=== PATIENT | male | born 1975 | race Caucasian/White ===

== ENCOUNTER 2021-09-09 17:28 | Inpatient (IN) | payer SELFPAY ==
[~2021-09-09] VITALS: Ht 182.9 cm; Wt 77.0 kg
--- NOTE | 2021-09-09 17:28 | NUR ---
PATIENT TO ROOM VIA EMS STATUS. PATIENT UNRESPOSIVE AND HAS OCCASIONAL MOVEMENTS TO RIGHT ARM. NASAL AIRWAY PLACED AND 02 BY NONREBREATHER. LACERATION TO RIGHT EYEBROWN, LEFT EYE AND NASAL SWELLING NOTED. PATIENT WAS GIVEN A TOTAL OF 100 OF KETAMINE BY EMS.
[2021-09-09 17:58] LABS: HEMATOCRIT 45.9 % (39.0-50.0); HEMOGLOBIN 15.3 g/dl (14.0-18.0); IMMATURE GRANULOCYTES 0.5 % (0.0-5.0); MEAN CELL VOLUME 101.5 fL CALC (80.0-100.0); MEAN CORPUSCULAR HGB 33.8 pG CALC (26.0-32.0); MEAN CORPUSCULAR HGB CONC 33.3 g/dL CAL (32.0-36.0); NEUT# 18.62 thou/uL (1.82-7.42); RED BLOOD COUNT 4.52 mill/uL (4.70-6.10); RED CELL DISTRI WIDTH 11.7 % (11.5-15.5)
[2021-09-09 17:59] LABS: URINE BILIRUBIN - DIPSTICK NEGATIVE (NEGATIVE); URINE BLOOD DIPSTICK MODERATE (NEGATIVE); URINE COLOR YELLOW; URINE GLUCOSE - DIPSTICK NEGATIVE (NEGATIVE); URINE KETONE NEGATIVE (NEGATIVE); URINE LEUK ESTERASE NEGATIVE (NEGATIVE); URINE PROTEIN - DIPSTICK NEGATIVE (NEG-TRACE); URINE UROBILINOGEN - DIPSTICK 0.2 E.U./dL (0.2)
[2021-09-09 18:02] LABS: URINE NITRITE - DIPSTICK NEGATIVE (Negative)
[2021-09-09 18:27] LABS: ACT PARTIAL THROMBO TIME 20.5 SECONDS (20.0-32.5); PROTHROMBIN TIME 10.8 SECONDS (9.0-12.5)
--- NOTE | 2021-09-09 18:50 | NUR ---
PT RESTING SUPINE WITH HOB ELEVATED, NASAL TRUMPET IN PLACE TO RT NARE. O2 @3LPM VIA N/C.PT STILL SEDATE. SITER AT BEDSIDE. VSS. NEURO BILAT PUPILS 2MM ADN SLUGGISH.
[2021-09-09 18:51] LABS: ALBUMIN 4.9 g/dL (3.2-5.0); ALKALINE PHOSPHATASE 84 u/l (38-126); AMYLASE 99 u/l (30-110); ANION GAP 14 (6-22 (CALC)); BILIRUBIN, TOTAL 0.9 mg/dL (0.0-1.4); BUN 12 mg/dL (9-20); BUN/CREATININE RATIO 13 (12-20 (CALC)); CARBON DIOXIDE 23 mmol/l (22-30); CHLORIDE 111 mmol/l (95-108); CPK 805 u/l (52-200); CREATININE 0.9 mg/dL (0.7-1.3); ETHYL ALCOHOL 0 mg/dl (0-30); GFR > 60 ML/MIN (>=60 (CALC)); GFR FOR AFR.AMER. > 60 ML/MIN (>=60 (CALC)); LIPASE 207 u/l (23-300); POTASSIUM 4.2 mmol/l (3.5-5.1); SGOT/AST 77 u/l (17-59); SODIUM 144 mmol/l (137-146); TOTAL PROTEIN 8.1 g/dL (6.3-8.2)
--- NOTE | 2021-09-09 19:20 | NUR ---
PT AWAKE ABLE TO REPEAT NAME AND REPEATEDLY, REQUIRES FREQUENT REMINDERS TO LAY BACK AND RELAX, PT COOPERATIVE JUST NEEDS FREQUENT REMINDERS.
--- NOTE | 2021-09-09 20:10 | NUR ---
PT RESTING QUIETLY AT THIS TIME, CALL FAITH WITHIN REACH, SITTER AT BEDSIDE
--- NOTE | 2021-09-09 20:24 | NUR ---
MOM AT BEDSIDE
[2021-09-09 20:40] VITALS: BP 169/102
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
[2021-09-09 21:40] VITALS: BP 170/103
[2021-09-09 21:55] VITALS: BP 162/98
--- NOTE | 2021-09-09 22:00 | NUR ---
MOM UP TO VISIT PT AND PT REMAINS ASLEEP DURING VISIT, PER MOM PT HAS NEVER , NO CHILDREN LIVES WITH HER IN [place] AND HAS A SERIOUS ETOH PROBLEM / HISTORY.
[2021-09-09 23:00] VITALS: BP 164/96
--- NOTE | 2021-09-09 23:32 | NUR ---
PT LINEN CHANGE PERFORMED, PT REQUIRES FREQUENT REMINDERS TO FOLLOW COMMANDS, APOLOGETIC BUT CONTINUES TO BE FORGETFUL, COMPLETE LINEN CHANGE PERFORMED, MEDICATED FOR ANXIETY AND TREMORS ORDERED, IVF CONTINUE, WILL CONTINUE TO MONITOR.
[2021-09-10] VITALS (21 sets, daily range): BP systolic 135–160; BP diastolic 85–108
--- NOTE | 2021-09-10 00:10 | NUR ---
PT SLEEPING NO S/S OF DISTRESS NOTED, SITTER REMAINS AT BEDSIDE COMFORT MEASURES PROVIDED, WILL CONTINUE TO MONITOR.
--- NOTE | 2021-09-10 02:15 | NUR ---
PT RESTING NO S/S OF DISTRESS, PT ACCIDENTALLY REMOVED NASAL TRUMPET NOT REPLACED AT THIS TIME, WILL CONTINUE TO MONITOR
--- NOTE | 2021-09-10 04:00 | NUR ---
PT AWAKE AND TALKING WITH SITTER, NO NEW COMPLAINTS VOICED,
--- NOTE | 2021-09-10 05:42 | NUR ---
PT RESTING WITH EYES CLOSED, CALL FAITH WITHIN REACH
--- NOTE | 2021-09-10 08:43 | NUR ---
PT SEEN AWAKE, ALERT, ORIENTED X 3. LUNGS CLEAR, RA. PT DENIES PAIN. PT SEEN WITH FACIAL BRUISING, DESCRIBES HITTING FACE ON TOILET AT HOME HE PASSED OUT GETTING UP FROM TOILET, 4-5 TIMES. PT WITH SHORT TERM MEMORY DIFFICULTY, TRIES TO PIECE TOGETHER YESTERDAY'S EVENTS. SLIGHT OOZING FROM LEFT FACIAL ABRASION, DABS WITH KLEENEX. PEDAL EDEMA 2+ BILATERALLY.
[2021-09-10 10:54] LABS: HEMATOCRIT 43.7 % (39.0-50.0); HEMOGLOBIN 14.1 g/dl (14.0-18.0); IMMATURE GRANULOCYTES 0.2 % (0.0-5.0); MEAN CELL VOLUME 102.8 fL CALC (80.0-100.0); MEAN CORPUSCULAR HGB 33.2 pG CALC (26.0-32.0); MEAN CORPUSCULAR HGB CONC 32.3 g/dL CAL (32.0-36.0); NEUT# 9.6 thou/uL (1.82-7.42); RED BLOOD COUNT 4.25 mill/uL (4.70-6.10); RED CELL DISTRI WIDTH 11.7 % (11.5-15.5)
[2021-09-10 11:50] LABS: ALBUMIN 4.1 g/dL (3.2-5.0); ALKALINE PHOSPHATASE 66 u/l (38-126); BUN 7 mg/dL (9-20); BUN/CREATININE RATIO 10 (12-20 (CALC)); CHLORIDE 104 mmol/l (95-108); CREATININE 0.7 mg/dL (0.7-1.3); GFR > 60 ML/MIN (>=60 (CALC)); GFR FOR AFR.AMER. > 60 ML/MIN (>=60 (CALC)); POTASSIUM 3.9 mmol/l (3.5-5.1); SGOT/AST 82 u/l (17-59); TOTAL PROTEIN 6.8 g/dL (6.3-8.2)
[2021-09-10 11:57] LABS: ANION GAP 8 (6-22 (CALC)); BILIRUBIN, TOTAL 1.3 mg/dL (0.0-1.4); CARBON DIOXIDE 28 mmol/l (22-30); SODIUM 136 mmol/l (137-146)
--- NOTE | 2021-09-10 12:50 | NUR ---
PT SEEN BY DR HAZEL THIS MORNING. PT CONSISTENT WITH STORY REGARDING HIS INJURIES. XRAYS ORDERED AND TAKEN, RESULTS PENDING. MOTHER HAS VISITED WITH PT THIS MORNNG.
--- NOTE | 2021-09-10 16:13 | NUR ---
PT CONTINUES AT REST IN THE BED, NO DISTRESS, NO COMPLAINTS. BESS CATHETER HAS BEEN REMOVED, WAITING FOR PT TO VOID SINCE REMOVAL.
--- NOTE | 2021-09-10 17:59 | NUR ---
PT TO BSC, WAS ABLE TO HAVE BM AND VOID. ESPANA BOOT BROUGHT FROM ER PER LEFT ANKLE FRACTURE. PT UPDATED ON LEFT FIBULAR FX, DR HAZEL MADE AWARE PER TEXT.
--- NOTE | 2021-09-10 20:00 | NUR ---
RESTING IN BED WATCHING TV. NO COMPLAINTS VOICED. VSS. RESP NON-LABORED. LUNGS CLEAR. PATIENT IS CALM AND COOPERATIVE. MONITOR SR. DISCUSSED PLAN OF CARE. DENIES NEEDS AT THIS TIME. CALL FAITH IN REACH.
--- NOTE | 2021-09-10 22:00 | NUR ---
WATCHING TV. NO COMPLAINTS. VSS.
[2021-09-11] VITALS (16 sets, daily range): BP systolic 108–179; BP diastolic 82–101
--- NOTE | 2021-09-11 00:05 | NUR ---
RESTING WITH EYES CLSOED. RESP EVEN AND UNLABORED. SR ON MONITOR.
--- NOTE | 2021-09-11 02:00 | NUR ---
SLEEPING, RESP NON-LABORED. VSS.
--- NOTE | 2021-09-11 04:00 | NUR ---
NO CHANGES TO REPORT. VSS. RESP NON-LABORED.
[2021-09-11 04:55] LABS: HEMATOCRIT 43.6 % (39.0-50.0); HEMOGLOBIN 14.2 g/dl (14.0-18.0); MEAN CELL VOLUME 103.6 fL CALC (80.0-100.0); MEAN CORPUSCULAR HGB 33.7 pG CALC (26.0-32.0); MEAN CORPUSCULAR HGB CONC 32.6 g/dL CAL (32.0-36.0); RED BLOOD COUNT 4.21 mill/uL (4.70-6.10); RED CELL DISTRI WIDTH 11.7 % (11.5-15.5)
[2021-09-11 05:05] LABS: ANION GAP 10 (6-22 (CALC)); BUN 7 mg/dL (9-20); BUN/CREATININE RATIO 11 (12-20 (CALC)); CARBON DIOXIDE 26 mmol/l (22-30); CHLORIDE 103 mmol/l (95-108); CREATININE 0.6 mg/dL (0.7-1.3); GFR > 60 ML/MIN (>=60 (CALC)); GFR FOR AFR.AMER. > 60 ML/MIN (>=60 (CALC)); POTASSIUM 4.2 mmol/l (3.5-5.1); SODIUM 135 mmol/l (137-146)
--- NOTE | 2021-09-11 06:21 | NUR ---
SLETP WELL. PATIENT HAS BEEN CALM AND COOPERATVIE THROUGHT THE SHIFT. NO C/O VOICED. VSS.
--- NOTE | 2021-09-11 07:00 | NUR ---
ASSUMED CARE OF PT FROM PERLITA SCHNEIDER. NO S/S OF DISTRESS NOTED.
--- NOTE | 2021-09-11 09:45 | NUR ---
ROUNDING AT BEDSIDE
--- NOTE | 2021-09-11 12:30 | NUR ---
PT RESTING IN BED, DENIES AY NEEDS, NO S/S OF DISTRESS NOTED
--- NOTE | 2021-09-11 15:39 | NUR ---
PT TRANSFERRED TO [facility] 269 VIA WHEELCHAIR AFTER REPORT CALLED TO PERLITA GOMEZ
--- NOTE | 2021-09-11 16:31 | NUR ---
REPORT RECEIVED FROM PAPI IN ICU, PT TRANSPORTED TO UNIT VIA W/C @ 1540 AND SETTLED IN BED. ALERT AND ORIENTED X 3, NO C/O DISCOMFORT AT THIS TIME BUT REQUESTING WALKER STATING HE WANTS TO AMBULATE TO BR INSTEAD OF USING BSC, DENIES PAIN TO FX LEFT FOOT AT THIS TIME. SUPERVISED AMBULATION TO BR WITH ASSIST OF WALKER, INFORMED OF FALL PRECAUTION/PREVENTION AND STATED UNDERSTANDING, ORIENTED TO ROOM AND CALL FAITH, SETTLED IN ROOM, WILL CONTINUE TO MONITOR AND ADDRESS NEEDS.
--- NOTE | 2021-09-11 19:00 | NUR ---
RECEIVED REPORT FROM NURSE LAWLER, PATIENT RESTING IN BED, ASSUMED PATIENT CARE, NOT IN DISTRESS CALL LIGHT AT REACH.
--- NOTE | 2021-09-11 20:00 | NUR ---
PATIENT ALERT ORIENTED X 3 ABLE TO MAKE NEEDS KNONW, BREATHING UNLABORED, FACIAL BRUISING NOTED, ABRASIONS NOTED ON KNEES, SWELLING ON BOTH FEET,LEFT FOOT ELEVATED, WITH PILLOW,GEN BODY PAIN PS /10, PATIENT STATED THAT IF HE WON'T MOVE FEET NO PAIN, ACTIVE BOWEL SOUNDS, LBM 1/2, CIWA SORE 0, CALL LIGHT AT REACH.
--- NOTE | 2021-09-11 23:40 | NUR ---
PATIENT RESTING IN BED, EYES CLOSED, BREATHING UNLABORED, NO DISCOMFORTS AT THIS TIME.
[2021-09-12] VITALS: BP 132/93
--- NOTE | 2021-09-12 04:07 | NUR ---
PATIENT RESTING WITH EYES CLOSED, DENIES PAIN OR DISCOMFORTS AT THIS TIME, BREATHING UNLABORED CALL LIGHT AT REACH.
[2021-09-12 04:08] VITALS: BP 129/84
[2021-09-12 07:49] VITALS: BP 142/91
--- NOTE | 2021-09-12 08:00 | NUR ---
SHIFT CHANGE REPORT, PT AWAKE ALERT AND ORIENTED RESTING IN BED, DENIES PAIN, FACIAL AND LEFT FOOT EDEMA AND BRUISING STILL PROMINENT, L. LEG ELEVATED ON PILLOWS, CALL FAITH IN REACH AND BED LOCKED IN LOWEST POSITIOIN.
--- NOTE | 2021-09-12 09:32 | NUR ---
Patient is screened for PT intervention and no needs are identified at this time
--- NOTE | 2021-09-12 12:58 | NUR ---
SITTING UP IN BED, ATE MEAL, MD ROUNDED AND DISCUSSED PLAN OF CARE, MOTHER AT BEDSIDE, ALL NEEDS ADDRESSED.
--- NOTE | 2021-09-12 15:24 | NUR ---
TRAMSPORTED OFF UNT VIA W/C TO CT AND RETURNED TO UNIT, DENIES PAIN, BP & HR ELEVATED TO 172/108 & 109 AT THIS TIME, MERGERS AND ACQUISITIONS ATTORNEY NOTIFIED AND STATED HE WILL ADDRESS CONDITION.
[2021-09-12 15:25] VITALS: BP 172/108
--- NOTE | 2021-09-12 16:00 | NUR ---
DR BEN BAGLEY, PLACED SPLIT ON LEFT FOOT,ADVISED PT HE NEEDS SURGICAL INTERVENTION BUT NEEDS SWELLING TO RECEDE FIRST AND SURGERY MAY NOT BE UNTIL LATE THIS WEEK OR EARLY NEXT WEEK, PT UNDERSTANDS.
[2021-09-12 19:39] VITALS: BP 150/94
--- NOTE | 2021-09-13 01:38 | NUR ---
PHYSICAL ASSESMENT COMPLETE. PT CURRENTLY DENIES PAIN OR DISCOMFORT. SCHEDULED MEDICATIONS AND PRN MEDICATION ADMINISTERED, SEE E-MAR. PT LEFT FOOT IS PINK WITH GOOD COLOR. TOES RESPOND TO STIMULI. PT DENIES ANY NEEDS AT THIS TIME. PLAN OF CARE REVIEWED, PT DENIES QUESTIONS, VERBALIZES UNDERSTANDING. ITEMS WITHIN REACH, BED LOCKED IN LOW POSITION W/ BEDRAILS UP X2. CALL FAITH WITHIN REACH, AGREES TO CALL PRN.
[2021-09-13 04:00] VITALS: BP 139/94
--- NOTE | 2021-09-13 06:24 | NUR ---
PT LAYING IN BED WITH EYES CLOSED, APPEARS TO BE SLEEPING, APPEARS COMFORTABLE AND IN NO DISTRESS. RESPIRATIONS REGULAR AND UNLABORED. ITEMS REMAIN WITHIN REACH, CALL FAITH REMAINS WITHIN REACH. BED REMAINS LOCKED AND IN LOW POSITION WITH BEDRAILS UP X2. WILL CONTINUE TO MONITOR.
[2021-09-13 07:56] VITALS: BP 141/88
--- NOTE | 2021-09-13 09:00 | NUR ---
PT AWAKE, ALERT, ORIENTED X 3. LUNGS CLEAR, RA. PT WITH LEFT LEG ON PILLOWS PER SWELLING. NO REPORT OF PAIN. PT AWARE OF PLAN OF CARE FOR SURGERY AFTER SWELLING SUBSIDES.
[2021-09-13 11:31] VITALS: BP 144/90
--- NOTE | 2021-09-13 13:57 | NUR ---
PT REMAINS AT REST IN THE BED WITHOUT CHANGE IN STATUS.
[2021-09-13 15:05] VITALS: BP 139/89
--- NOTE | 2021-09-13 17:02 | NUR ---
PT STATES THAT HE IS DOING WELL, NO PAIN OR DISCOMFORT.
[2021-09-13 18:30] VITALS: BP 152/98
--- NOTE | 2021-09-13 20:00 | NUR ---
PHYSICAL ASSESMENT COMPLETE. PT C/O OF PAIN AND DISCOMFORT. SCHEDULED MEDICATIONS AND PRN MEDICATION ADMINISTERED, SEE E-MAR. LEFT FOOT ELEVATED ON A PILLOW. PT DENIES ANY NEEDS AT THIS TIME. PLAN OF CARE REVIEWED, PT DENIES QUESTIONS, VERBALIZES UNDERSTANDING. ITEMS WITHIN REACH, BED LOCKED IN LOW POSITION W/ BEDRAILS UP X2. CALL FAITH WITHIN REACH, AGREES TO CALL PRN.
[2021-09-14] VITALS: BP 145/85
[2021-09-14 03:45] VITALS: BP 119/79
--- NOTE | 2021-09-14 04:00 | NUR ---
PT RESTING IN BED, NO SIGNS OF DISTRESS NOTED, RESP EVEN AND UNLABORED. PT VOICES NO NEEDS OR COMPLAINTS AT THIS TIME. CALL LIGHT IN REACH, CONTINUE TO MONITOR.
[2021-09-14 08:16] VITALS: BP 126/80
--- NOTE | 2021-09-14 08:19 | NUR ---
SHIFT CHANGE REPORT, PT AWAKE ALERT AND ORIENTED SITTING UP IN BED, PLEASANTLY CONVERSANT, STATES LEFT FOOT FEELS MUCH BETTER AND ON ASSESSMENT EDEMA IS RECEEDING, CAST IS IN PLACE AND PT ABLE TO WIGGLE TOES AHICH AR WARM WITH BRISK BLOOD RETURN, FACIAL EDEMA ALSO IMPROVING BUT DARK ORBITAL BRUISING STILL PROMINENT. CALL FAITH IN REACH AND BED LOCKED IN LOWEST POSITION.
--- NOTE | 2021-09-14 12:00 | NUR ---
NO NEW COMPLAINS, RELAXING IN BED, NEW ORDERS REVIEWED WITH PT WHO STATED UNDERSTANDING, ALL NEEDS MET/ADDRESSED, CALL FAITH IN REACH.
[2021-09-14 15:39] VITALS: BP 145/91
[2021-09-14 19:00] VITALS: BP 142/84
--- NOTE | 2021-09-14 20:00 | NUR ---
PHYSICAL ASSESMENT COMPLETE. PT CURRENTLY DENIES PAIN OR DISCOMFORT. SCHEDULED MEDICATIONS AND PRN MEDICATION ADMINISTERED, SEE E-MAR. PT DENIES ANY NEEDS AT THIS TIME. PLAN OF CARE REVIEWED, PT DENIES QUESTIONS, VERBALIZES UNDERSTANDING. ITEMS WITHIN REACH, BED LOCKED IN LOW POSITION W/ BEDRAILS UP X2. CALL FAITH WITHIN REACH, AGREES TO CALL PRN.
[2021-09-15 04:00] VITALS: BP 119/89
[2021-09-15 05:51] LABS: HEMATOCRIT 41.8 % (39.0-50.0); MEAN CELL VOLUME 100.5 fL CALC (80.0-100.0); MEAN CORPUSCULAR HGB 33.7 pG CALC (26.0-32.0); MEAN CORPUSCULAR HGB CONC 33.5 g/dL CAL (32.0-36.0); RED BLOOD COUNT 4.16 mill/uL (4.70-6.10); RED CELL DISTRI WIDTH 11.7 % (11.5-15.5)
[2021-09-15 06:04] LABS: ANION GAP 9 (6-22 (CALC)); BUN 12 mg/dL (9-20); BUN/CREATININE RATIO 13 (12-20 (CALC)); CARBON DIOXIDE 27 mmol/l (22-30); CHLORIDE 104 mmol/l (95-108); CREATININE 0.9 mg/dL (0.7-1.3); GFR > 60 ML/MIN (>=60 (CALC)); GFR FOR AFR.AMER. > 60 ML/MIN (>=60 (CALC)); MAGNESIUM 2.2 mg/dL (1.6-2.3); POTASSIUM 4.4 mmol/l (3.5-5.1); SODIUM 136 mmol/l (137-146)
[2021-09-15 07:15] VITALS: BP 125/84
--- NOTE | 2021-09-15 07:15 | NUR ---
PATIENT RESTING IN BED AT THIS TIME. LEFT FOOT IN SPLINT AND VIDHYA WRAPPED SWELLING 1+ AT THIS TIME. PATIENT DENIES ANY PAIN CURRENTLY SIDERAILS ARE UP X X 2 STATED HE HAS HAD 2 BM THIS MORNING AND ARE NORMAL IN COLOR. DR. OSULLIVAN IN TO SEE PATIENT AND STATED HE WILL TAKE HIM TO SURGERY ON SUNDAY TO REPAIR FRACTURE. CWIA SCALE IS A 0 AT THIS TIME. SPECIAL SERVICES AGENT DONE SEE INTERVENTIONS.
--- NOTE | 2021-09-15 10:59 | NUR ---
SURGERY NURSE PERLITA ESCALONA CALLED AND STATED LONG PATIENT ISN'T EXHIBITING ANY COVID SYMPTOMS A NEW COVID TEST IS NOT REQUIRED PRIOR TO SURGERY.
--- NOTE | 2021-09-15 11:34 | NUR ---
PATIENT SITTING UP IN CHAIR AT THIS TIME DENEIS ANY NEEDS CALL LIGHT AND PERSONAL ITEMS WITHIN REACH. LEFT FOOT ELEVATED AT THIS TIME. WILL CONTINUE TO MONITOR.
--- NOTE | 2021-09-15 14:23 | NUR ---
PATIENT STATES HIS PAIN ON HIS FOOT IS ABOUT A "1" AND THAT THE MOTRIN DOES HELP WITH THIS THROBBING. PATIENT ADVISED THAT MOTRIN IN SCHEDULE AND HE WILL BE GETTING THE MEDICATION ORDERED.
[2021-09-15 15:28] VITALS: BP 132/74
--- NOTE | 2021-09-15 16:02 | NUR ---
PATIENT SITTING UP IN CHAIR WATCHING TV AT THIS TIME. MACHELLE STATES HE HAS NO PAIN AT THIS TIME AND LEFT FOOT IS ELEVATED. LEFT FOOT HAS NOTIABLE SWELLING 1+ AND IS SPLINTED AND VIDHYA WRAPPED AT THIS TIME. CALL LIGHT WITHIN REACH AND PERSONAL ITEMS WELL. WILL CONTINUE TO MONITOR.
[2021-09-15 19:12] VITALS: BP 133/71
--- NOTE | 2021-09-15 19:17 | NUR ---
PT SITTING IN CHAIR AT BEDSIDE, NO SIGNS OF DISTRESS NOTED, RESP EVEN AND UNLABORED. PT ALERT AND ORIENTED X4, DISCUSSED POC, DENIES ANY PAIN AT THIS TIME ONLY REQUEST IS GATORADE. IV TO RW SL FLUSHED WELL WALKER AT BEDSIDE, LLE IN SPLINT AWAITING SURGERY ON SUNDAY. DRESSING CDI, SKIN COOL, CAPILLARY REFILL SLUGGISH, PEDAL PULSE UNABLE TO ASSESS DUE TO SPLINT. ASSESSMENT COMPLETED, CALL LIGHT IN REACH,CONTINUE TO MONITOR.
--- NOTE | 2021-09-15 21:46 | NUR ---
PT RESTING IN BED, MEDICATED PER NOV PT STATES THROBBING TO HIS HEAD 10/20. CALL LIGHT IN REACH,CONTINUE TO MONITOR.
[2021-09-16] VITALS: BP 127/68
--- NOTE | 2021-09-16 01:09 | NUR ---
PT RESTING IN BED WITH EYES CLOSED, NO SIGNS OF DISTRESS NOTED, RESP EVEN AND UNLABORED. CALL LIGHT IN REACH,CONTINUE TO MONITOR.
[2021-09-16 03:44] VITALS: BP 124/76
--- NOTE | 2021-09-16 05:25 | NUR ---
PT MEDICATED PER MAR, NO SIGNS OF DISTRESS NOTED, RESP EVEN AND UNLABORED. CALL LIGHT IN REACH,CONTINUE TO MONITOR.
[2021-09-16 07:15] VITALS: BP 128/76
--- NOTE | 2021-09-16 07:50 | NUR ---
PATIENT RESTING IN BED AT THIS TIME DENEIS ANY PAIN. LEFT FOOT REMAINS IN SPLINT AND IS 1+ IN SWEELING PATIENT SIDERAILS ARE UP X 2 FACIAL CONTUSIONS ARE IN HEALING STAGES PILOT BOAT CAPTAIN DONE SEE INTERVENTIONS.
--- NOTE | 2021-09-16 11:17 | NUR ---
PATIENT SITTING UP IN CHAIR AT THIS TIME DEINES ANY NEEDS CURRENTLY. LEFT FOOT ELEVATED AT THIS TIME. CALL LIGHT AND PERSONAL BELONGINGS WIARTEMIOIN REACH.
--- NOTE | 2021-09-16 16:15 | NUR ---
PATIENT RESTING IN BED AT THIS TIME. DENIES ANY PAIN AND OR NEEDS CALL LIGHT WITHIN REACH SIDERAILS ARE UP X2.
[2021-09-16 16:39] VITALS: BP 131/79
[2021-09-16 19:01] VITALS: BP 126/76
--- NOTE | 2021-09-16 19:44 | NUR ---
PT RESTING IN BED WATCHING TV, NO SIGNS OF DISTRESS NOTED, RESP EVEN AND UNLABORED. PT ALERT AND ORIENTED X4, DISCUSSED POC, LLE ELEVATED SPLINT DRESSING CDI, UNALBE TO ASSESS PEDAL PULSE DUE TO DRESSING. NOTED EDEMA, TOES WARM, CAPILLARY REFILL SLUGGISH BUT PRESENT. PT ABLE TO WIGGLE TOES. NO COMPLAINTS OF PAIN AT THIS TIME. ASSESSMENT COMPLETED, CALL LIGHT IN REACH,CONTINUE TO MONITOR.
--- NOTE | 2021-09-16 21:41 | NUR ---
PT RESTING IN BED WATCHING TV, MEDICATED PER NOV, NO C/O PAIN. CALL LIGHT IN REACH,CONTINUE TO MONITOR.
--- NOTE | 2021-09-17 | NUR ---
PT RESTING IN BED, NO SIGNS OF DISTRESS NOTED, RESP EVEN AND UNLABORED. VOICES NO NEEDS OR COMPLAINTS, CALL LIGHT IN REACH,CONTINUE TO MONITOR.
[2021-09-17 04:00] VITALS: BP 98/62
--- NOTE | 2021-09-17 04:00 | NUR ---
PT RESTING IN BED, NO SIGNS OF DISTRESS NOTED, RESP EVEN AND UNLABORED. DISCUSSED NEW IV ACCESS, ATTEMPTED NEW IV, UNSUCCESSFUL PT STATES HE WOULD PREFER NOT TO CHANGE HIS IV SITE SINCE HIS IS "WORKING" IV SITE FLUSHED, PT TOLERATED WELL. CALL LIGHT IN REACH,CONTINUE TO MONITOR.
[2021-09-17 07:06] VITALS: BP 109/62
--- NOTE | 2021-09-17 07:12 | NUR ---
PATIENT IS RESTING IN BED. ASSESSMENT DONE. PATIENT IS ALERT AND ORIENT X3. PATIENT DENIES PAIN AT THIS TIME. LEFT LEG SPLINT IN PLACE. PATIENT STATED HE HAD A BM TODAY. RESPS EVEN AND UNLABORED. PATIENT DENIES NEEDS AT THIS TIME. SAFETY PRECAUTIONS REINFORCED AND CALL LIGHT IN REACH.
--- NOTE | 2021-09-17 11:46 | NUR ---
PATIENT STATED HE DONE WITH LUNCH NO DISTRESS NOTED. PATIENT IS WATCHING TV. PATIENT DENIES NEEDS. CALL LIGHT IN REACH.
[2021-09-17 14:56] VITALS: BP 129/74
--- NOTE | 2021-09-17 15:00 | NUR ---
PATIENT SITTING IN THE RECLINER AND DENIES NEEDS AT THIS TIME. LEFT LEG SPLINT IN PLACE. CALL LIGHT IN REACH.
--- NOTE | 2021-09-17 19:30 | NUR ---
RECEIVED REPORT FROM PERLITA BEAR. ASSUMED CARE OF PATIENT.
[2021-09-17 19:37] VITALS: BP 119/84
--- NOTE | 2021-09-18 | NUR ---
PATIENT RESTING IN BED WITH EYES CLOSED, NO S/SX OF DISTRESS OR DISCOMFORT NOTED AT THIS TIME. CALL LIGHT WITHIN REACH, BED WHEELS LOCKED WITH SIDE RAILS UP X 2, WILL CONTINUE TO MONITOR.
[2021-09-18 04:10] VITALS: BP 101/67
--- NOTE | 2021-09-18 07:00 | NUR ---
SHIFT CHANGE REPORT, PT AWAKE ALERT AND ORIENTED SITTING UP IN BED, DENIES DISCOMFORT, PLEASANT DISPOSITION, CAST IN PLACE TO LEFT LOWER LEG, CALL FAITH IN REACH AND BED LOCKED IN LOWEST POSITION.
[2021-09-18 07:37] VITALS: BP 123/77
--- NOTE | 2021-09-18 12:19 | NUR ---
SITTING UP IN RECLINER HAVING MEAL, ALL NEEDS ADDRESSED.
[2021-09-18 14:52] VITALS: BP 122/68
--- NOTE | 2021-09-18 16:00 | NUR ---
RELAXING IN BED, NO NEW COMPLAINS, ALL NEEDS ADDRESSED
[2021-09-18 19:00] VITALS: BP 145/85
--- NOTE | 2021-09-18 20:00 | NUR ---
PHYSICAL ASSESMENT COMPLETE. PT CURRENTLY HAS MILD PAIN OR DISCOMFORT. SCHEDULED MEDICATIONS AND PRN MEDICATION ADMINISTERED, SEE E-MAR. PT WILL BE PLACED NPO AT MIDNIGHT FOR ANTICIPATED SURGERY IN THE AM. PT DENIES ANY NEEDS AT THIS TIME. PLAN OF CARE REVIEWED, PT DENIES QUESTIONS, VERBALIZES UNDERSTANDING. ITEMS WITHIN REACH, BED LOCKED IN LOW POSITION W/ BEDRAILS UP X2. CALL FAITH WITHIN REACH, AGREES TO CALL PRN.
[2021-09-19] VITALS (11 sets, daily range): BP systolic 116–157; BP diastolic 77–98
--- NOTE | 2021-09-19 00:31 | NUR ---
PT LAYING IN BED WITH EYES CLOSED, APPEARS TO BE SLEEPING, APPEARS COMFORTABLE AND IN NO DISTRESS. RESPIRATIONS REGULAR AND UNLABORED. PT IS NPO. ITEMS REMAIN WITHIN REACH, CALL FAITH REMAINS WITHIN REACH. BED REMAINS LOCKED AND IN LOW POSITION WITH BEDRAILS UP X2. WILL CONTINUE TO MONITOR.
[2021-09-19 05:34] LABS: HEMATOCRIT 39.7 % (39.0-50.0); HEMOGLOBIN 13.2 g/dl (14.0-18.0); MEAN CELL VOLUME 100.5 fL CALC (80.0-100.0); MEAN CORPUSCULAR HGB 33.4 pG CALC (26.0-32.0); MEAN CORPUSCULAR HGB CONC 33.2 g/dL CAL (32.0-36.0); RED BLOOD COUNT 3.95 mill/uL (4.70-6.10); RED CELL DISTRI WIDTH 11.6 % (11.5-15.5)
[2021-09-19 05:52] LABS: ANION GAP 10 (6-22 (CALC)); BUN 7 mg/dL (9-20); BUN/CREATININE RATIO 10 (12-20 (CALC)); CARBON DIOXIDE 26 mmol/l (22-30); CHLORIDE 105 mmol/l (95-108); CREATININE 0.7 mg/dL (0.7-1.3); GFR > 60 ML/MIN (>=60 (CALC)); GFR FOR AFR.AMER. > 60 ML/MIN (>=60 (CALC)); POTASSIUM 4.4 mmol/l (3.5-5.1); SODIUM 136 mmol/l (137-146)
--- NOTE | 2021-09-19 07:06 | NUR ---
SHIFT CHANGE REPORT, PT SLEEPING BUT AWAKENED TO VERBAL STIMULI, DENIES PAIN, CAST IN PLACE TO LEFT LOWER LEG, CALL FAITH IN REACH AND BED LOCKED IN LOWEST POSITION.
--- NOTE | 2021-09-19 08:00 | NUR ---
OR TEAM RECEIVED PT AND TRANSPORTED OFF UNIT VIA STRETCHER.
--- NOTE | 2021-09-19 12:35 | NUR ---
PT RETURNED TO UNIT @ 1235 TRANSPORTED VIA STRETCHER BY PACU STAFF AND TRANSFERRED TO BED. BEDSIDE REPORT GIVEN BY PACU STAFF-PT ALERT AND ORIENTED, C/O MILD PAIN TO L. LEG, IVF INFUSING, CAST IN PLACE TO LEFT LOWER LEG , LEG ELEVATED ON 2 PILLOWS, ICE APPLIED PERIODICALLY, CALL FAITH IN REACH. PACU STAFF REPORTED 5CC EBL, 1700CC IV FLUIDS IN,2 GRAMS ANCEF GIVEN AND 1GM IV TYLENOL. PT RESTING IN BED AND POST-OP VITAL SIGNS BEING MEASURED, WILL CONTINUE TO MONITOR.
--- NOTE | 2021-09-19 16:12 | NUR ---
SITTING UP AT BEDSIDE NOW, C/O PAIN TO LEFT FOOT @ 8/10, HUNGER AMD THIRST, ALL THESE NEEDS ADDRESSED IN TIMELY MANNER, WILL CONTINUE TO MONITOR.
[2021-09-20] VITALS: BP 134/84
[2021-09-20 04:00] VITALS: BP 131/79
--- NOTE | 2021-09-20 07:29 | NUR ---
PATIENT STATED PAIN IN LEFT LEG AND CAST IN PLACE. LEFT LEG ELEVATED IN PILLOWS. MEDICATED PATIENT WITH PERCOCET. ASSESSMENT DONE .RESPS EVEN AND UNLABORED. PATIENT DENIES ANY OTHER NEEDS AT THIS TIME. CALL LIGHT IN REACH.
[2021-09-20 07:31] VITALS: BP 137/93
[2021-09-20 07:36] VITALS: BP 137/93
[2021-09-20] MEDS ORDERED: OXYCODO-APAP1 TA2 PO (11:45)
[2021-09-20] MEDS ORDERED: KEFLEX500 MG PO (11:45)
[2021-09-20] MEDS ORDERED: MOTRIN800 MG PO (11:45)
--- NOTE | 2021-09-20 13:30 | NUR ---
Discharge instructions given. Patient verbalizes understanding of same. Discharged in stable condition via Wheelchair to Home with mother. All belongings sent with pt.
== END 2021-09-20 13:30 | disposition home or self-care (01) | DRG 907 ==
LOC: ED 17:28 → EDBD 18:22 → ED 18:22 → ED-I 20:00 → ED 20:33 → MS2 20:34 → ED-I 20:34 → ICU 09-10 07:30 → MS2 09-11 15:39
PROVIDERS: Nurse Practitioner; ADMIT Internal Medicine; ATTEND Hospitalist
PROC: 0SGL04Z Fusion of Left Tarsometatarsal Joint with Internal Fixation Device, Open Approach (ICD-10-PCS; principal; 2021-09-19)
PROC: 0SGL04Z Fusion of Left Tarsometatarsal Joint with Internal Fixation Device, Open Approach (ICD-10-PCS; 2021-09-19)
DX: T40.711A Poisoning by cannabis, accidental (unintentional), initial encounter (principal); G92.8 Other toxic encephalopathy; T42.8X1A Poisoning by antiparkinsonism drugs and other central muscle-tone depressants, accidental (unintentional), initial encounter; T42.6X1A Poisoning by other antiepileptic and sedative-hypnotic drugs, accidental (unintentional), initial encounter; T51.0X1A Toxic effect of ethanol, accidental (unintentional), initial encounter; F10.229 Alcohol dependence with intoxication, unspecified; S92.312A Displaced fracture of first metatarsal bone, left foot, initial encounter for closed fracture; S92.322A Displaced fracture of second metatarsal bone, left foot, initial encounter for closed fracture; S02.2XXA Fracture of nasal bones, initial encounter for closed fracture; S82.832A Other fracture of upper and lower end of left fibula, initial encounter for closed fracture; S40.012A Contusion of left shoulder, initial encounter; S70.01XA Contusion of right hip, initial encounter; S01.111A Laceration without foreign body of right eyelid and periocular area, initial encounter; S80.212A Abrasion, left knee, initial encounter; S80.211A Abrasion, right knee, initial encounter; W22.01XA Walked into wall, initial encounter; Y92.009 Unspecified place in unspecified non-institutional (private) residence as the place of occurrence of the external cause
CPT/HCPCS: J0131; J1650; J2060; Q9967